=== PATIENT | female | born 1975 | race Caucasian/White ===

== ENCOUNTER 2018-03-22 21:45 | Emergency (ER) | payer MEDICAID ==
[~2018-03-22] VITALS: Ht 167.6 cm; Wt 91.0 kg
[2018-03-22] MEDS ORDERED: VISCOUS LIDOCAINE 2% 15 ML UDC PO ONE (23:00)
[2018-03-22] MEDS ORDERED: TOPIRAMATE 100MG TABLET PO SCH (23:00)
[2018-03-22] MEDS ORDERED: CARBAMAZEPINE 100MG TABLET CHEW PO ONE (23:00)
[2018-03-22] MEDS ORDERED: ASPIRIN 81MG TABLET PO ONE (23:00)
[2018-03-22] MEDS ORDERED: MAGNESIUM/ALUMINUM HYDROXIDE/SIMETHICONE 30ML UDC PO ONE (23:00)
[2018-03-22 23:11] LABS: CLARITY URINE CLEAR (CLEAR); COLOR URINE YELLOW (YELLOW); KETONES URINE NEGATIVE (NEGATIVE); LEUKOCYTE ESTERASE URINE NEGATIVE (NEGATIVE); NITRITE URINE NEGATIVE (NEGATIVE); OCCULT BLOOD URINE NEGATIVE (NEGATIVE); PH URINE 5.5 (4.5-8.0); PROTEIN URINE NEGATIVE (NEGATIVE); SPECIFIC GRAVITY URINE 1.013 (1.005-1.030); UROBILINOGEN URINE 0.2 E.U./dL (0.2-1.0)
[2018-03-22 23:31] LABS: BASOPHILS % 0.3 % (0.0-2.0); HEMATOCRIT. 39.3 % (36.0-48.0); HEMOGLOBIN. 13.2 g/dL (12.0-16.0); LYMPHOCYTES % 9.5 % (20.0-50.0); MEAN CORPUSCULAR HEMOGLOBIN 28.5 pg (28.0-32.0); MEAN CORPUSCULAR VOLUME 85.1 fL (81.0-99.0); MEAN PLATELET VOLUME 8.1 fl (7.4-10.4); NEUTROPHILS % 87.2 % (40.0-76.0); PLATELET 269 x1000/uL (130-400); RED BLOOD CELL COUNT 4.62 mill/uL (4.2-5.4); RED CELL DISTRIBUTION WIDTH 13.5 % (11.6-14.6)
[2018-03-22 23:37] LABS: CHLORIDE 106 mEq/L (98-107)
[2018-03-22 23:43] LABS: D-DIMER 0.7 mg/L FEU (<0.50); PARTIAL THROMBOPLASTIN TIME 29.7 sec (23.4-31.0); PROTHROMBIN TIME 10.6 sec (9.4-11.6)
[2018-03-23 00:20] VITALS: BP 146/85
[2018-03-23] MEDS ORDERED: IOHEXOL-350 100 ML BOTTLE ONE (02:27)
== END 2018-03-23 02:59 | disposition left against medical advice (07) ==
LOC: ER 21:45 → CANBEDREQ 03-23 05:43
DX: R07.89 Other chest pain (principal); R79.1 Abnormal coagulation profile
CPT/HCPCS: 36415; 71045; 71275; 80053; 81003; 81025; 83690; 83880; 84484; 85025; 85379; 85610; 85730; 93005; 99285; Q9967